=== PATIENT | female | born 1935 | race Caucasian/White ===

== ENCOUNTER → 2020-07-07 | Outpatient (CLI) | payer MEDICARE, OTHER ==
[~2020-07-07] MED LIST: ALPRAZOLAM0.5 MG PO; ARIMIDEX1 MG PO; ASPIRIN EC81 MG PO; AUGMENTIN 875-1 EACH PO; COMMODE MC; CRESTOR20 MG PO; ELIQUIS 5 MG TAB5 MG PO; LEVOCETIRIZINE D5 MG PO; LISINOPRIL-HCT1 EAC1 PO; LISINOPRIL10 MG PO; LOPRESSOR 25 MG25 MG PO; NORVASC10 MG PO; PRINIVIL10 MG PO; SULFAMETHOXAZO1 EACH PO; SYNTHROID75 MCG PO; TENORMIN 50 MG50 MG PO
[2020-07-07 09:40] LABS: HEMOGLOBIN 13.9 gm/dl (12.3-15.3); RED BLOOD COUNT 4.49 M/UL (4.00-5.10); WHITE BLOOD COUNT 6.6 K/UL (4.5-11.0)
[2020-07-07 10:04] LABS: BUN/CREATININE RATIO 19 (0-10)
[2020-07-08 09:14] LABS: VITAMIN D, 25-HYDROXY 25.3 ng/mL (30.0-100.0)
== END ==
LOC: LAB 09:12
PROVIDERS: Family Medicine
DX: Z00.00 Encounter for general adult medical examination without abnormal findings (principal); I11.0 Hypertensive heart disease with heart failure; I50.32 Chronic diastolic (congestive) heart failure; E03.9 Hypothyroidism, unspecified; E55.9 Vitamin D deficiency, unspecified; E78.5 Hyperlipidemia, unspecified; E87.1 Hypo-osmolality and hyponatremia; E87.6 Hypokalemia; M81.0 Age-related osteoporosis without current pathological fracture; Z79.891 Long term (current) use of opiate analgesic
CPT/HCPCS: 36415; 80048; 80061; 80076; 82607; 82652; 84443; 85025

== ENCOUNTER → 2021-11-23 | Outpatient (CLI) | payer MEDICARE, OTHER | LOC: KOH-I 10:18 | DX: R05.9 Cough, unspecified (principal); J20.9 Acute bronchitis, unspecified; R91.8 Other nonspecific abnormal finding of lung field | CPT/HCPCS: 71046 ==

== ENCOUNTER 2021-11-29 21:24 | Emergency (ER) | payer MEDICARE, OTHER ==
[2021-11-29 21:58] LABS: HEMOGLOBIN 12.7 gm/dl (12.3-15.3); RED BLOOD COUNT 4.08 M/UL (4.00-5.10); WHITE BLOOD COUNT 7.8 K/UL (4.5-11.0)
[2021-11-29 22:35] LABS: BUN/CREATININE RATIO 19 (0-10)
== END 2021-11-30 00:25 | disposition home or self-care (01) ==
LOC: ER1 21:24
DX: S00.03XA Contusion of scalp, initial encounter (principal); E87.6 Hypokalemia; I10 Essential (primary) hypertension; I48.91 Unspecified atrial fibrillation; W01.10XA Fall on same level from slipping, tripping and stumbling with subsequent striking against unspecified object, initial encounter; Y92.009 Unspecified place in unspecified non-institutional (private) residence as the place of occurrence of the external cause
CPT/HCPCS: 70450; 72125; 80053; 81001; 82550; 82553; 84484; 85025; 85610; 85730; 87086; 93005; 99284